=== PATIENT | male | born 1970 | race Caucasian/White ===

== ENCOUNTER 2016-09-02 11:00 | Emergency (ER) | payer OTHER ==
[2016-09-02 11:13] VITALS: BP 155/88
--- NOTE | 2016-09-02 12:34 | PROVIDER DOCUMENTATION ---
HPI-EENT General - General Source: patient - History of Present Illness-EENT General EENT Location: reports: dental (R second molar abscess) Severity: reports: moderate Onset/Duration: reports: abrupt Timing: reports: still present Associated Symptoms: reports: facial pain/swelling (R side only). denies: fever Similar Symptoms Previously?: Yes Recently seen or treated by another doctor?: Yes (Dentist yesterday) - Throat/Dental Throat/Dental Problem Symptoms: reports: toothache, swelling of jaw/face (R side only) Throat/Dental Problem Context: reports: dental decay Recently seen a dentist or have an appointment?: Yes (Seen yesterday, extraction scheduled for tomorrow) <Marcella Munoz - Last Filed: 09/02/16 12:29> - General Source: patient, family <Virginie Lyn - Last Filed: 09/02/16 12:40> - General Chief Complaint: Toothache Stated Complaint: SORE THROAT Time Seen by Provider: 09/02/16 12:16 Allergies/Adverse Reactions: Patient Allergies Allergy/AdvReac Type Severity Reaction Status Date / Time No Known Allergies Allergy Verified 04/09/15 22:08 Home Medications: Home Medication List Medication Instructions Recorded Confirmed Last Taken Type Cyclobenzaprine [Flexeril] 10 mg PO TID #20 tablet 04/09/15 Unknown Rx Meloxicam [Mobic] 7.5 mg PO DAILY PRN PRN #15 tablet 04/09/15 Unknown Rx Metformin [Glucophage] 500 mg PO DAILY 04/09/15 04/09/15 04/09/15 History Sertraline [Zoloft] 50 mg PO DAILY 04/09/15 04/09/15 04/09/15 History Famotidine [Pepcid] 20 mg PO DAILY #10 tablet 09/02/16 Unknown Rx Hydrocodone/APAP 7.5 mg/325 mg 1 each PO Q6H PRN PRN #7 tablet 09/02/16 Unknown Rx [[place]-7.5] Ketorolac [Toradol] 10 mg PO Q6H PRN PRN #10 tablet 09/02/16 Unknown Rx Penicillin V Potassium 500 mg PO Q6HR #28 tablet 09/02/16 Unknown Rx - History of Present Illness-EENT General Nature of Presenting Problem: 46 yo M presents to ED with cc of R-side tooth pain and cheek/mandible swelling. Pt was seen by dentist yesterday, who dx patient with abscess and scheduled a tooth extraction for tomorrow. Pt reports his pain is too severe to manage until tomorrow. Pt denies any other mouth, tooth, or facial pain and swelling. Upon arrival to ED, pt is alert and mildly distressed. (Marcella Munoz) Review of Systems - Adult - REVIEW OF SYSTEMS - ADULT Constitutional: reports: no symptoms reported. denies: chills, fever Eyes: reports: no symptoms reported. denies: discharge, decreased vision Ears, Nose, Mouth & Throat: reports: mouth/dental pain (R second molar, abscess (dx by dentist yesterday)) Cardiovascular: reports: no symptoms reported. denies: chest pain, heart murmur Respiratory: reports: no symptoms reported. denies: cough, hemoptysis Gastrointestinal: reports: no symptoms reported. denies: abdominal pain, diarrhea Genitourinary: reports: no symptoms reported. denies: dysuria, flank pain Musculoskeletal: reports: no symptoms reported. denies: bone pain, joint pain Integumentary: reports: no symptoms reported. denies: hives, itching Neurological: reports: no symptoms reported. denies: dizziness/vertigo, loss of balance Psychiatric: reports: no symptoms reported. denies: anxiety, depression Endocrine: reports: no symptoms reported. denies: cold intolerance, heat intolerance Hematologic/Lymphatic: reports: no symptoms reported. denies: blood clots, low blood count Allergic/Immunologic: reports: no symptoms reported. denies: allergic reactions , eczema All Other Systems: Reviewed and Negative <Marcella Munoz - Last Filed: 09/02/16 12:29> Past History - Adult - PAST MEDICAL HISTORY-ADULT Review of Records: reports: Old Records Reviewed, Nursing Assessment Review, Medications Reviewed Major Childhood Illnesses: reports: denies history Cardiovascular: reports: denies history Respiratory: reports: denies history Gastrointestinal: reports: denies history Obstetrical/Gynecological: reports: denies history Genitourinary: reports: denies history Musculoskeletal: reports: denies history Neurological: reports: denies history Endocrine/Immune: reports: denies history Other Conditions: reports: denies history - IMMUNIZATION STATUS Childhood Immunizations: See Nurse Assessment Flu Vaccine: See Nurse Assessment <Marcella Munoz - Last Filed: 09/02/16 12:29> Physical Exam- EENT - Physical Exam EENT Initial Vital Signs Reviewed: Yes General Appearance: appears well, alert, mild distress Eye Exam: bilateral eye: normal inspection, PERRL, EOMI Ear Exam: bilateral ear: auricle normal, canal normal, TM normal Nasal Exam: normal inspection Throat Exam: pharynx normal, dental tenderness, mandibular swelling (R side only ), other (R second molar abscess). negative: maxillary swelling, pharynx swelling, tongue swollen Neck: non-tender, full range of motion, supple Respiratory: chest non-tender, lungs clear, normal breath sounds Cardiovascular: normal peripheral pulses, regular rate, rhythm, no edema Abdominal Exam: normal bowel sounds, non tender, soft Lymphatic: no adenopathy Back Exam: normal inspection, no vertebral tenderness Extremity: normal range of motion, non-tender, normal gait Integumentary: normal color, normal turgor, warm/dry Neurologic: grossly normal, no motor/sensory deficits Psych/Mental Status: normal mood/affect, normal thought content, normal thought process, oriented x 3 <Marcella Munoz - Last Filed: 09/02/16 12:29> Departure <Marcella Munoz - Last Filed: 09/02/16 12:29> - Departure Time of Disposition Order: 12:37 Certified Medical Emergency: Emergent <Virginie Lyn - Last Filed: 09/02/16 12:40> - Departure DIAGNOSIS: Dental abscess Disposition: HOME 01 Condition: Stable Additional Instructions: Follow up with your dentist tomorrow as scheduled. Return for any new or concerning symptoms. ED Follow Up Instructions: You have been treated by a care provider in the Emergency Department. These instructions are being provided to you so you can have an understanding of how to care for yourself upon discharge. Upon discharge from the Emergency Department, you are responsible for making arrangements for follow-up care by a physician of your choice. Take all prescribed medications as directed. Return to the Emergency Department immediately for any new or worsening symptoms. You may call the Physician Referral phone number at [phone] to obtain a list of Physicians who are taking new patients. Prescriptions: Hydrocodone/APAP 7.5 mg/325 mg [[place]-7.5] 1 each PO Q6H PRN PRN #7 tablet PRN Reason: Pain Penicillin V Potassium 500 mg PO Q6HR #28 tablet Famotidine [Pepcid] 20 mg PO DAILY #10 tablet Ketorolac [Toradol] 10 mg PO Q6H PRN PRN #10 tablet PRN Reason: tooth pain Attestation - Scribe Verification/Attestation Scribe:: Marcella Munoz Acting as Scribe for:: Virginie Lyn Scribe documention review:: This chart was documented by a scribe and accurately reflects the service the provider performed and the decisions made by the provider. - Physician/ MICHAEL Attestation Patient care was provided by Advanced Practice Provider:: Yes Advanced Practice Provider:: Virginie Lyn Advanced Practice Provider documentation review:: The Mid-level provider documentation, treatment plan and medical decision making was reviewed by the physician who agrees with all treatment and medical decision making by the MLP. <Marcella Munoz - Last Filed: 09/02/16 12:29> - Physician/ MICHAEL Attestation Patient care was provided by Advanced Practice Provider:: Yes Advanced Practice Provider:: Virginie Lyn Advanced Practice Provider documentation review:: The Mid-level provider documentation, treatment plan and medical decision making was reviewed by the physician who agrees with all treatment and medical decision making by the MLP. <Virginie Lyn - Last Filed: 09/02/16 12:40> Physician Attestation
[2016-09-02] MEDS ORDERED: DILAUDID IM ONE (12:36)
[2016-09-02] MEDS ORDERED: TORADOL IM ONE (12:36)
[2016-09-02] MEDS ORDERED: ZOFRAN ODT PO ONE (12:36)
[2016-09-02] MEDS ORDERED: PEN VK PO ONE (12:37)
== END 2016-09-02 13:20 | disposition home or self-care (01) ==
LOC: P.ED 11:00
DX: K04.7 Periapical abscess without sinus (principal); K08.89 Other specified disorders of teeth and supporting structures; R22.0 Localized swelling, mass and lump, head; K02.9 Dental caries, unspecified; J02.9 Acute pharyngitis, unspecified
CPT/HCPCS: 96372; J1170; J1885